=== PATIENT | male | born 1955 | race Caucasian/White ===

== ENCOUNTER 2017-11-16 16:17 | Emergency (ER) | payer OTHER ==
[2017-11-16] MEDS ORDERED: ONDANSETRON 4MG/2ML VIAL (J2405) As Ordered (16:46)
[2017-11-16] MEDS: ONDANSETRON 4MG/2ML VIAL (J2405) IV (16:52)
[2017-11-16] MEDS: MORPHINE 4 MG/ML 1ML VIAL/SYRINGE (J2270) IV (16:52)
[2017-11-16] MEDS: NS 1,000 ML IV (17:06)
[2017-11-16] MEDS: LIDOCAINE W/EPINEPHRINE 1% 20ML VIAL SC (17:20)
[2017-11-16] MEDS ORDERED: MIDAZOLAM INJ 5 MG/ML VIAL (J2250) As Ordered (17:42)
[2017-11-16] MEDS: MIDAZOLAM INJ 2 MG/2 ML VIAL (J2250) IV (17:57)
== END 2017-11-16 19:55 | disposition home or self-care (01) ==
LOC: M ED 16:17
DX: S52.591A Other fractures of lower end of right radius, initial encounter for closed fracture (principal); W01.0XXA Fall on same level from slipping, tripping and stumbling without subsequent striking against object, initial encounter; Y92.89 Other specified places as the place of occurrence of the external cause; Z88.8 Allergy status to other drugs, medicaments and biological substances; F17.210 Nicotine dependence, cigarettes, uncomplicated
CPT/HCPCS: J2270